=== PATIENT | male | born 1960 | race African-American/Black ===

== ENCOUNTER 2021-11-09 12:03 | Emergency (ER) | payer OTHER ==
[~2021-11-09] VITALS: Ht 182.9 cm; Wt 105.0 kg
[2021-11-09 12:32] VITALS: BP 124/75
== END 2021-11-09 12:53 | disposition left against medical advice (07) ==
LOC: ER 12:03
DX: Z53.21 Procedure and treatment not carried out due to patient leaving prior to being seen by health care provider (principal)